=== PATIENT | female | born 1955 | race Caucasian/White ===

== ENCOUNTER 2021-04-05 13:28 | Outpatient (CLI) | payer OTHER | END 2021-04-05 13:29 | disposition home or self-care (01) | LOC: CSHULT 13:28 | DX: I73.9 Peripheral vascular disease, unspecified (principal); Z95.828 Presence of other vascular implants and grafts | CPT/HCPCS: 93923 ==

== ENCOUNTER 2021-07-27 10:45 | Emergency (ER) | payer OTHER ==
[2021-07-27 11:36] LABS: #Eosinphils 0.6 10x3/uL (0.0-0.5); #Monocytes 0.9 10x3/uL (0.0-1.1); #Neutrophils 7.1 10x3/uL (1.5-8.4); %Basophils 0.4 % (0.0-2.0); %Eosinophils 6.4 % (0.0-6.0); %Lymphocytes 7.1 % (18.0-47.0); %Monocytes 9.3 % (0.0-10.0); %Neutrophils 76.7 % (40.0-75.0); Hemoglobin 14.6 g/dL (12.0-15.5); Mean Corpuscular HGB CONC 34.4 g/dL (32.0-36.0); Mean Corpuscular Volume 98.8 fl (81.6-98.3); Platelet Count 190 10x3/uL (150-450); RBC Distribution Width 13.3 % (11.5-14.5); White Blood Cell (WBC) Count 9.3 10x3/uL (3.5-10.5)
[2021-07-27 11:54] LABS: Anion Gap 16 mmol/L (10-20); BUN (Urea Nitrogen) 10 mg/dL (9.8-20.1); CK (CPK) 108 U/L (29-168); Calc. Creatinine Clearance 0 mL/min (70-130); Calcium 9.5 mg/dL (7.8-10.44); Carbon Dioxide 25 mmol/L (23-31); Chloride 103 mmol/L (98-107); Glucose 97 mg/dL (80-115); Potassium 4.5 mmol/L (3.5-5.1); Sodium 139 mmol/L (136-145)
[2021-07-27] MEDS ORDERED: Fentanyl 100 MCG/2 ML VIAL ONE ×2 (12:58→16:32)
[2021-07-27] MEDS ORDERED: levETIRAcetam in NS 100 ML ONE (18:02)
== END 2021-07-27 11:28 | disposition home or self-care (01) ==
LOC: CSHERS 10:45 → EDSEX 10:45 → CSHERS 11:28
DX: S32.2XXA Fracture of coccyx, initial encounter for closed fracture (principal); R33.9 Retention of urine, unspecified; W11.XXXA Fall on and from ladder, initial encounter
CPT/HCPCS: 51702; 72195; 74177; 76870; 80048; 82550; 85025; 93976; 96374; 96376; J1953; J3010

== ENCOUNTER 2023-01-24 11:19 | Emergency (ER) | payer OTHER | END 2023-01-24 16:50 | disposition home or self-care (01) | LOC: CSHERS 11:19 | DX: N45.1 Epididymitis (principal) | CPT/HCPCS: 76870; 93976 ==